=== PATIENT | female | born 1965 | race Caucasian/White ===

== ENCOUNTER 2017-04-25 20:38 | Emergency (ER) | END 2017-04-25 23:10 | disposition home or self-care (01) ==

== ENCOUNTER 2017-12-20 19:39 | Emergency (ER) | END 2017-12-20 22:25 | disposition home or self-care (01) ==

== ENCOUNTER 2018-02-20 11:36 | Day surgery (SDC) | END 2018-02-20 14:46 | disposition home or self-care (01) ==

== ENCOUNTER 2018-05-08 11:12 | Emergency (ER) | payer BC ==
[~2018-05-08] VITALS: Ht 165.1 cm; Wt 79.0 kg
[~2018-05-08 11:12] MED LIST: ALBU18HF INHALATION; ALBU2.5V3 NEB; ALBU8.5H8 INH; IPRA3AMP29 INH
[2018-05-08 11:21] VITALS: Ht 165.1 cm; Wt 79.0 kg
[2018-05-08] MEDS ORDERED: SOD CHLORIDE 0.9% 1,000 ML IV STA (13:16)
[2018-05-08] MEDS ORDERED: CIPR500T4 PO (14:44)
[2018-05-08] MEDS ORDERED: PRED20TA PO (14:44)
[2018-05-08] MEDS ORDERED: HYDR-3029 PO (15:16)
[2018-05-08 15:19] VITALS: BP 121/72; PULSE 79; RESP 18
--- NOTE | 2018-05-08 15:24 | ERD ---
ER Documentation Chief Complaint Chief Complaint LT SIDE FACE NUMBNESS , LT ARM NUMBNESS X 2 DAYS , LT SIDE PELVIC PAIN HPI 52-year-old female presenting with paresthesias on the left side of her face with some left-sided numbness. Patient is also complaining of some CVA tenderness. She has a to GI with some occasional dizziness. No vomiting. No visual changes. Denies chest pain or shortness of breath medic. Medical history is asthma. NKDA. Surgical history denies. Social history smokes 3 cigarettes a day. ROS All systems reviewed and are negative except as per history of present illness. Medications Home Meds Active Scripts Hydroxyzine Hcl* (Hydroxyzine Hcl*) 10 Mg Tablet, 10 MG PO Q6H PRN for ANXIETY, #30 TAB Prov:JL SALCEDO PA-C 05/08/18 Prednisone* (Prednisone*) 20 Mg Tab, 40 MG PO DAILY for 4 Days, TAB Prov:JL SALCEDO PA-C 05/08/18 Ciprofloxacin Hcl* (Ciprofloxacin Hcl*) 500 Mg Tablet, 500 MG PO BID for 7 Days, TAB Prov:JL SALCEDO PA-C 05/08/18 Ipratropium-Albuterol (Ipratropium-Albuterol) 0.5-3 Mg/3 Ml Ampul.neb, 3 ML INH Q4H PRN for SHORTNESS OF BREATH, #30 AMP Prov:CHONG AKHTAR MD 04/25/17 Albuterol Sulfate* (Proair HFA*) 8.5 Gm Hfa.aer.ad, 2 PUFF INH Q4H PRN for WHEEZING AND SOB, #1 INHALER Prov:CHONG AKHTAR MD 04/25/17 Reported Medications Albuterol Sulfate* (Ventolin HFA*) 18 Gm Hfa.aer.ad, 2 PUFF INHALATION Q4H, #1 INHALER 02/20/18 Albuterol Sulfate* (Albuterol Sulfate* Neb) 0.083%-3 Ml Neb, 1.25 MG NEB Q3H PRN for WHEEZING AND SOB, #30 VIAL 02/20/18 Allergies Allergies: Coded Allergies: No Known Allergy (Unverified , 04/25/17) PMhx/Soc History of Surgery: No Anesthesia Reaction: No Hx Neurological Disorder: No Hx Respiratory Disorders: Yes (ASTHMA) Hx Cardiac Disorders: No Hx Psychiatric Problems: No Hx Miscellaneous Medical Probl: No Hx Alcohol Use: No Hx Substance Use: No Hx Tobacco Use: Yes (6 CIGARETTES PER DAY) Smoking Status: Current every day smoker FmHx Family History: No diabetes, No coronary disease, No other Physical Exam Vitals Vital Signs Date Temp Pulse Resp B/P (MAP) Pulse Ox O2 O2 Flow FiO2 Time Delivery Rate 05/08/18 97.8 79 18 121/72 97 Room Air 15:19 (88) 05/08/18 99.3 115 18 152/94 100 11:21 (113) Physical Exam GENERAL: The patient is well-appearing, well-nourished, in no acute distress HEENT: Atraumatic. Conjunctivae are pink. Pupils equal, round, and reactive to light. There is no scleral icterus. Tympanic membranes clear bilaterally. Oropharynx clear. NECK: C-spine is soft and supple. There is no meningismus. There is no cervical lymphadenopathy. CHEST: Clear to auscultation bilaterally. There are no rales, wheezes or rhonchi. HEART: Regular rate and rhythm. No murmurs, clicks, rubs or gallops. No S3 or S4. ABDOMEN:Soft, nontender and nondistended. Good bowel sounds. No rebound or guarding. No gross peritonitis. No gross organomegaly or masses. EXTREMITIES: Equal pulses bilaterally. There is no peripheral clubbing, cyanosis or edema. No focal swelling or erythema. Full range of motion. Grossly neurovascularly intact. NEUROLOGIC: Alert and oriented. Cranial nerves II through XII intact. Motor strength in all 4 extremities with 5 out of 5 strength. Sensation grossly intact. Normal speech and gait. SKIN: There is no apparent rash or petechiae. The skin is warm and dry. Result Diagram: 05/08/18 1339 05/08/18 1339 Results 24 hrs Laboratory Tests Test 05/08/18 13:30 05/08/18 13:35 05/08/18 13:39 Urine Color STRAW Urine Clarity CLEAR Urine pH 6.0 Urine Specific [place] 1.003 Urine Ketones NEGATIVE mg/dL Urine Nitrite NEGATIVE mg/dL Urine Bilirubin NEGATIVE mg/dL Urine Urobilinogen NEGATIVE mg/dL Urine Leukocyte Esterase 3+ Tracy/ul Urine Microscopic RBC 4 /HPF Urine Microscopic WBC 29 /HPF Urine Squamous Epithelial Cells FEW /HPF Urine Bacteria FEW /HPF Urine Hemoglobin 1+ mg/dL Urine Glucose NEGATIVE mg/dL Urine Total Protein NEGATIVE mg/dl POC Beta HCG, Qualitative NEGATIVE White Blood Count 9.0 10^3/ul Red Blood Count 4.30 10^6/ul Hemoglobin 13.6 g/dl Hematocrit 41.4 % Mean Corpuscular Volume 96.3 fl Mean Corpuscular Hemoglobin 31.6 pg Mean Corpuscular 32.9 g/dl Hemoglobin Concent Red Cell Distribution Width 12.4 % Platelet Count 380 10^3/UL Mean Platelet Volume 9.4 fl Immature Granulocytes % 0.200 % Neutrophils % 68.5 % Lymphocytes % 23.1 % Monocytes % 6.2 % Eosinophils % 1.7 % Basophils % 0.3 % Nucleated Red Blood Cells % 0.0 /100WBC Immature Granulocytes # 0.020 10^3/ul Neutrophils # 6.2 10^3/ul Lymphocytes # 2.1 10^3/ul Monocytes # 0.6 10^3/ul Eosinophils # 0.2 10^3/ul Basophils # 0.0 10^3/ul Nucleated Red Blood Cells # 0.0 10^3/ul Prothrombin Time 12.5 Sec Prothrombin Time Ratio 1.0 INR International 0.92 Normalized Ratio Activated Partial Thromboplast 27.6 Sec Time Sodium Level 141 mmol/L Potassium Level 4.1 mmol/L Chloride Level 100 mmol/L Carbon Dioxide Level 31 mmol/L Anion Gap 10 Blood Urea Nitrogen 9 mg/dl Creatinine 0.69 mg/dl Est Glomerular Filtrat > 60 mL/min Rate mL/min Glucose Level 105 mg/dl Calcium Level 9.7 mg/dl Total Bilirubin 0.1 mg/dl Direct Bilirubin 0.00 mg/dl Indirect Bilirubin 0.1 mg/dl Aspartate Amino Transf (AST/SGOT) 24 IU/L Alanine 25 IU/L Aminotransferase (ALT/SGPT) Alkaline Phosphatase 79 IU/L Troponin I < 0.012 ng/ml Total Protein 7.5 g/dl Albumin 4.3 g/dl Globulin 3.20 g/dl Albumin/Globulin Ratio 1.34 Lipase 203 U/L Current Medications Medications Dose Sig/Alyce Start Time Status Last (Trade) Ordered Route PRN Stop Time Admin Dose Reason Admin Sodium 1,000 ml @ Q1H STAT 05/08/18 DC 05/08/18 Chloride 1,000 mls/hr IV 13:16 05/08/18 14:11 14:15 Procedures/MDM DIAGNOSTIC IMAGING REPORT Patient: ALANNAH TIRADO : 1965 Age: 52 Sex: F MR #: [id number] DOS: 05/08/18 1314 Ordering MD: CAIN SALCEDO PA-C Location: [facility] Room/Bed: PROCEDURE: CT brain without contrast CLINICAL INDICATION: Numbness TECHNIQUE: CT of the brain without contrast was performed on a multidetector CT scanner, with multiplanar reformats. One or more of the following dose reduc tion techniques were used: Automated exposure control, adjustment in mA and / or kV according to patient size, use of iterative reconstructive technique. CTDIvol = 56 mGy; DLP = 931 mGy-cm. DICOM images are available. COMPARISON: None available FINDINGS: There are are extensive artifacts from hair extensions which significantly limit evaluation. No gross acute intracranial hemorrhage is seen. No extra-axial fluid collection is seen. No mass effect or midline shift is identified. There is no hydrocephalus. The ventricles and sulci are appear unremarkable. The density of the visualized brain is grossly unremarkable. Visualized estes- white junctions are grossly preserved. Calvarium and skull base are intact. Mastoid air cells and imaged paranasal sinuses grossly clear. IMPRESSION: Significantly limited evaluation due to artifacts from hair extensions, without gross acute intracranial pathology seen. DIAGNOSTIC IMAGING REPORT Patient: ALANNAH TIRADO : 1965 Age: 52 Sex: F MR #: [id number] DOS: 05/08/18 1314 Ordering MD: CAIN SALCEDO PA-C Location: [facility] Room/Bed: PROCEDURE: XR Chest. CLINICAL INDICATION: Abdominal pain TECHNIQUE: Single frontal view of the chest was obtained COMPARISON: None FINDINGS: The heart and mediastinum are within normal limits. The lungs are clear. There is no pleural effusion or pneumothorax. RPTAT: AA IMPRESSION: No acute disease. EKG: Rate/Rhythm: 84 bpm. Normal Sinus Rhythm QRS, ST, T-waves: No changes consistent w/ acute ischemia Impression: No evidence of ischemia or arrhythmia MDM: 52-year-old female presenting with paresthesias. Patient's blood work and imaging is within normal limits. Patient has findings consistent with urinary tract infection. Abdominal exam and pelvic exam are within normal limits. I do not feel that for further blood work or imaging is indicated. Patient is discharged stricter precautions and told to follow-up with primary care within 1-2 days for close evaluation. All questions answered at discharge Departure Diagnosis: Primary Impression: Facial paresthesia Additional Impression: UTI (urinary tract infection) Condition: Stable Patient Instructions: Understanding Urinary Tract Infections (UTIs), Paraelvira ibarraias Referrals: COUNT INCLUDES THE [facility] YOU HAVE RECEIVED A MEDICAL SCREENING EXAM AND THE RESULTS INDICATE THAT YOU DO NOT HAVE A CONDITION THAT REQUIRES URGENT TREATMENT IN THE EMERGENCY DEPARTMENT. FURTHER EVALUATION AND TREATMENT OF YOUR CONDITION CAN WAIT UNTIL YOU ARE SEEN IN YOUR DOCTORS OFFICE WITHIN THE NEXT 1-2 DAYS. IT IS YOUR RESPONSIBILITY TO MAKE AN APPOINTMENT FOR FOLOW-UP CARE. IF YOU HAVE A PRIMARY DOCTOR --you should call your primary doctor and schedule an appointment IF YOU DO NOT HAVE A PRIMARY DOCTOR YOU CAN CALL OUR PHYSICIAN REFERRAL HOTLINE AT IF YOU CAN NOT AFFORD TO SEE A PHYSICIAN YOU CAN CHOSE FROM THE FOLLOWING [facility] [address] [facility]. [facility] [address] [facility] [address] [facility] [facility] [address] [facility]. [facility] [address] [facility]. [facility]. [address] Additional Instructions: FOLLOW UP WITH YOUR PRIMARY CARE PHYSICIAN TOMORROW.Return to this facility if you are not improving as expected. JL SALCEDO PA-C May 08, 2018 15:24
== END 2018-05-08 15:21 | disposition home or self-care (01) ==
LOC: FTE 11:12
DX: N39.0 Urinary tract infection, site not specified (principal); R20.2 Paresthesia of skin; R10.9 Unspecified abdominal pain; J45.909 Unspecified asthma, uncomplicated
CPT/HCPCS: 36415; 70450; 71045; 80053; 81001; 81025; 83690; 84484; 85025; 85610; 85730; 93005; 96360; J7030; Z7502

== ENCOUNTER 2018-05-22 06:15 | Day surgery (SDC) | payer BC ==
[2018-05-21 09:43] VITALS: BMI 28.4
[2018-05-22] VITALS (12 sets, daily range): BP systolic 101–118; BP diastolic 60–73; PULSE 72–78; RESP 12–23; Ht 160 cm; Wt 78.8 kg
[~2018-05-22] VITALS: Ht 160 cm; Wt 78.8 kg
[~2018-05-22 06:15] MED LIST changes: +CIPR500T4 PO; +HYDR-3029 PO; +LACTATED RINGER'S 1,000 ML IV* SCH; +PRED20TA PO
[2018-05-22] MEDS ORDERED: ALBU18HF INHALATION (06:56)
--- NOTE | 2018-05-22 07:16 | HPN ---
Date/Time of Note Date/Time of Note DATE: 05/22/18 TIME: 07:16 Interval H&P Admission Note Pt. seen H&P reviewed: No system changes NEMESIO AMBROSE MD May 22, 2018 07:16
[2018-05-22] MEDS ORDERED: MONT10TA24 PO (07:27)
[2018-05-22] MEDS ORDERED: ALBU2.5V3 NEB (07:28)
--- NOTE | 2018-05-22 07:41 | PREAC ---
Date/Time of Note Date/Time of Note DATE: 05/22/18 TIME: 07:40 Anesthesia Eval and Record Evaluation Time Pre-Procedure Interview DATE: 05/22/18 TIME: 07:20 Age 52 Sex female NPO: 8 hrs Preoperative diagnosis Post Menopausal Bleeding Planned procedure Hysteroscopy and D&C Past Medical History Past Medical History: Includes Pulm: Asthma Surgery & Anesthesia Issues No known issue Meds Anticoagulation: No Beta Luis A within 24 hr: No Reason Beta Luis A not given: Pt. not on B-Luis A Reported Medications Albuterol Sulfate* (Albuterol Sulfate* Neb) 0.083%-3 Ml Neb, 2.5 MG NEB Q4H PRN for WHEEZING AND SOB, #30 VIAL 05/22/18 Montelukast Sodium* (Montelukast Sodium*) 10 Mg Tablet, 10 MG PO QHS, #30 TAB 05/22/18 Albuterol Sulfate* (Ventolin HFA*) 18 Gm Hfa.aer.ad, 2 PUFF INHALATION Q6H PRN for WHEEZING AND SOB, #1 INHALER 05/22/18 Discontinued Reported Medications Albuterol Sulfate* (Ventolin HFA*) 18 Gm Hfa.aer.ad, 2 PUFF INHALATION Q4H, #1 INHALER 02/20/18 Albuterol Sulfate* (Albuterol Sulfate* Neb) 0.083%-3 Ml Neb, 1.25 MG NEB Q3H PRN for WHEEZING AND SOB, #30 VIAL 02/20/18 Discontinued Scripts Hydroxyzine Hcl* (Hydroxyzine Hcl*) 10 Mg Tablet, 10 MG PO Q6H PRN for ANXIETY, #30 TAB Prov:JL SALCEDO PA-C 05/08/18 Prednisone* (Prednisone*) 20 Mg Tab, 40 MG PO DAILY for 4 Days, TAB Prov:JL SALCEDO PA-C 05/08/18 Ciprofloxacin Hcl* (Ciprofloxacin Hcl*) 500 Mg Tablet, 500 MG PO BID for 7 Days, TAB Prov:JL SALCEDO PA-C 05/08/18 Ipratropium-Albuterol (Ipratropium-Albuterol) 0.5-3 Mg/3 Ml Ampul.neb, 3 ML INH Q4H PRN for SHORTNESS OF BREATH, #30 AMP Prov:BETANCOURTMichaelTEECHONG MD 04/25/17 Albuterol Sulfate* (Proair HFA*) 8.5 Gm Hfa.aer.ad, 2 PUFF INH Q4H PRN for WHEEZING AND SOB, #1 INHALER Prov:CHONG AKHTAR MD 04/25/17 Current Medications Lactated Ringer's 1,000 ml @ 125 mls/hr Q8H IV* ; Start 05/22/18 at 06:00; Stop 05/22/18 at 13:59 Meds reviewed: Yes Allergies Coded Allergies: No Known Allergy (Unverified , 05/22/18) Allergies Reviewed: Yes Labs/Studies Labs Reviewed: Reviewed by anesthesiologist test: Negative Studies: ECG (n/a), CXR (n/a) Pre-procedure Exam Last vitals Vital Signs Date Temp Pulse Resp B/P (MAP) Pulse Ox O2 O2 Flow FiO2 Time Delivery Rate 05/22/18 97.4 78 18 103/73 97 Room Air 06:30 (83) Airway: Adequate mouth opening, Adequate thyromental dist Mallampati: Mallampati II Teeth: Normal Lung: Normal Heart: Normal ASA Physical Status ASA physical status: 2 Emergency: None Planned Anesthetic General/MAC: LMA Planned Pain Management Parenteral pain med Pre-operative Attestations Prior to commencing anesthesia and surgery, the patient was re-evaluated, there was verification of: *The patient's identity *The results of appropriate recent lab work and preoperative vital signs *The above evaluation not changing prior to induction *Anesthetic plan, risk benefits, alternative and complications discussed with patient/family; questions answered; patient/family understands, accepts and wishes to proceed. BEVERLEY MARIA MD May 22, 2018 07:41
[2018-05-22] MEDS ORDERED: PROPOFOL 20 ML ONE (07:47)
[2018-05-22] MEDS ORDERED: CEFAZOLIN 1 GM INJ ONE (07:47)
[2018-05-22] MEDS ORDERED: FENTAnyl 50 MCG/ML VIAL ONE (07:48)
[2018-05-22] MEDS ORDERED: MIDAZOLAM 1 MG/ML 2 ML INJ ONE (07:48)
[2018-05-22] MEDS ORDERED: KETOROLAC 30 MG INJ ONE (08:26)
[2018-05-22] MEDS ORDERED: METOCLOPRAMIDE 10 MG INJ ONE (08:26)
[2018-05-22] MEDS ORDERED: ONDANSETRON 4 MG INJ ONE (08:26)
[2018-05-22] MEDS ORDERED: DEXAMETHASONE 4 MG/ML 5 ML INJ ONE (08:26)
[2018-05-22] MEDS ORDERED: OXYCODONE/ACETAMINOPHEN (5/325) TAB PO PRN (08:30)
[2018-05-22] MEDS ORDERED: EPHEDrine SULFATE 50 MG/5 ML SYG IV PRN (08:30)
[2018-05-22] MEDS ORDERED: FENTAnyl 50 MCG/ML VIAL IV PRN ×3 (08:30)
[2018-05-22] MEDS ORDERED: MEPERIDINE 25 MG INJ IV PRN (08:30)
[2018-05-22] MEDS ORDERED: METOCLOPRAMIDE 10 MG INJ IV PRN (08:30)
[2018-05-22] MEDS ORDERED: HYDROmorphONE 1 MG/5 ML IV SYRINGE IV PRN ×3 (08:30)
[2018-05-22] MEDS ORDERED: DIPHENHYDRAMINE 50 MG INJ IV PRN (08:30)
[2018-05-22] MEDS ORDERED: ONDANSETRON 4 MG INJ IV PRN (08:30)
[2018-05-22] MEDS ORDERED: LABETALOL HCL 20MG INJ IV PRN (08:30)
--- NOTE | 2018-05-22 08:53 | PAC ---
Date/Time of Note Date/Time of Note DATE: 05/22/18 TIME: 08:53 Post-Anesthesia Notes Post-Anesthesia Note Last documented vital signs Vital Signs Date Temp Pulse Resp B/P (MAP) Pulse Ox O2 O2 Flow FiO2 Time Delivery Rate 05/22/18 98.3 78 18 103/73 97 Room Air 09:00 (83) Activity: WNL Respiratory function: WNL Cardiovascular function: WNL Mental status: Baseline Pain reasonably controlled: Yes Hydration appropriate: Yes Nausea/Vomiting absent: Yes BEVERLEY MARIA MD May 22, 2018 08:53
--- NOTE | 2018-05-22 09:21 | HPN ---
Date/Time of Note Date/Time of Note DATE: 05/22/18 TIME: 09:21 Interval H&P Admission Note Pt. seen H&P reviewed: No system changes NEMESIO AMBROSE MD May 22, 2018 09:21
--- NOTE | 2018-05-22 09:25 | SIPON ---
Date/Time of Note Date/Time of Note DATE: 05/22/18 TIME: 09:22 Operative Report Preoperative Diagnosis postmenopausal bleeding Postoperative Diagnosis see pathologic report Operation/Procedure Performed HYsteroscopic endometrial shaving endocervical curettage and endometrial curettage Surgeon see signature line hospital nursing assistant BARBRA from [employer] Anesthesia: general Estimated blood loss: 0 - 10 ml's Transfusion Required none Specimen endometrial curretings endocervical currettings Grafts/Implants none Complications none NEMESIO AMBROSE MD May 22, 2018 09:25
--- NOTE | 2018-05-22 09:27 | PD.PPDC ---
[employer] SERVICE SUPERVISOR Discharge Instruction Diagnosis [id number] Final Diagnosis: Mhzah3s postmenopausal bleeding Condition [id number] Patient Condition: Axrcw5q Stable Diet Gayht5Tl Diet: Wqqtp7t Resume Regular Diet Activity/Restrictions [id number] Activity: Lwzxd3h May Shower Gpoux9Pw Restrictions: Wbitn6e No Sexual Activity Nothing in the Vagina No E. Lopez No Tampons, douche Follow-up Follow-up with Physician: 2, Week/Weeks Return to clinic for Rwjuc3St DRAG DOWN Instructions: Pqptz6o Fever greater than 101 Chills Worsening abdominal pain Excessive Vaginal Bleeding More than 2 pads per hour Unable to tolerate diet NEMESIO AMBROSE MD May 22, 2018 09:27
--- NOTE | 2018-05-22 10:18 | OPR ---
DATE OF OPERATION: 05/22/2018 PREOPERATIVE DIAGNOSIS: Postmenopausal bleeding. POSTOPERATIVE DIAGNOSIS: Postmenopausal bleeding. See pathological report. OPERATION PERFORMED: Hysteroscopic endometrial shavings and endocervical curettage and the endometri al curettage additional. ANESTHESIA: General. ANESTHESIOLOGIST: Dr. Vallejo. SURGEON: Pj Ambrose M.D. ESTIMATED BLOOD LOSS: Approximately 5 mL. PROCEDURE: Under the proper induction of general anesthesia, the patient was placed in dorsal lithot chika position. Perineal area and vagina wall was prepped and draped in usual aseptic manner. Externa l genitalia revealed no gross abnormality. Bimanual examination, uterus is slightly retroverted and normal size and consistency. There is no palpable adnexal pathology. Weighted speculum was introduc ed into the vagina. Cervix identified, which was clear. Anterior lip of the cervix was grasped with a single tooth tenaculum. Endocervical curettage was performed with scanty tissue was obtained and the cavity was sounded, which was 7 cm in depth. After adjusting the operating table, according to t he uterine axis and the hysteroscope was prepared in usual fashion. The hysteroscope was introduced into the uterine cavity without any difficulty and advanced from the endocervical os to the uterine c avity. Both ostium was visualized, which was some blurry vision, which was corrected after the adequ ate suction was done. Then endometrial shaver was introduced and prior to the endometrial shaver ins erted, the picture was taken and there was not any gross lesion noted. Endometrium was relatively th in except a small clot that was most likely float around secondary to the endocervical curettage. Af ter the shaver inserted and the entire cavity was shaved, but due to inadequate visualization, after the hysteroscope was removed the addition uterine curettage was done and sent the additional specimen . All the instruments were removed. Sponge count taken. The patient was sent to recovery room in s table condition. Dictated By: PJ STARKS/JOSEFINA Conf#: [id number] DID#: [id number] CC: PJ AMBROSE MD;*EndCC*
== END 2018-05-22 10:38 | disposition home or self-care (01) ==
LOC: SDS 06:15
PROVIDERS: ATTEND Obstetrics & Gynecology
DX: N95.0 Postmenopausal bleeding (principal)
CPT/HCPCS: 58558; 88305; J0690; J1100; J1885; J2250; J2405; J2765; J3010; Z7512; Z7610

== ENCOUNTER 2018-09-07 23:11 | Emergency (ER) | payer BC ==
[~2018-09-07] VITALS: Ht 165.1 cm; Wt 75.0 kg
[~2018-09-07 23:11] MED LIST changes: -ALBU8.5H8 INH; -CIPR500T4 PO; -HYDR-3029 PO; -IPRA3AMP29 INH; -LACTATED RINGER'S 1,000 ML IV* SCH; +MONT10TA24 PO; -PRED20TA PO
[2018-09-07 23:17] VITALS: Ht 165.1 cm; Wt 75.0 kg
[2018-09-08] MEDS ORDERED: ALBUTEROL 0.083% (NEB) 2.5 MG/3 ML AMP NEB STA (01:06)
[2018-09-08] MEDS ORDERED: DEXAMETHASONE 10 MG/ML 1 ML INJ IM STA (01:06)
[2018-09-08] MEDS ORDERED: IPRATROPIUM (NEB) 0.5 MG/2.5 ML AMP NEB STA (01:06)
[2018-09-08] MEDS ORDERED: D-ME473S2 PO (02:40)
[2018-09-08] MEDS ORDERED: ALBU18HF INHALATION (02:41)
[2018-09-08] MEDS ORDERED: ALBU2.5V3 NEB (02:43)
[2018-09-08 02:51] VITALS: BP 119/76; PULSE 89; RESP 20
--- NOTE | 2018-09-08 04:24 | ERD ---
ER Documentation Chief Complaint Chief Complaint SOB X TODAY. HPI 53-year-old female with history of asthma presents to the ED complaining of shortness of breath and chest tightness x1 day. Patient states she has been recently sick with upper respiratory symptoms for the past 2 weeks. She states she has had a productive cough. She states she had leftover antibiotics at home when she took it feels much better. She states she feels short of breath despite her inhaler nebulizer treatment yesterday. She denies any chest pain. Denies any fevers or chills. She does admit to smoking cigarettes daily. ROS All systems reviewed and are negative except as per history of present illness. Medications Home Meds Active Scripts Albuterol Sulfate* (Albuterol Sulfate* Neb) 0.083%-3 Ml Neb, 2.5 MG NEB Q4 PRN for SHORTNESS OF BREATH, #30 EA Prov:PETEY GARIBAY PA-C 09/08/18 Albuterol Sulfate* (Ventolin HFA*) 18 Gm Hfa.aer.ad, 2 PUFF INHALATION Q6H PRN for WHEEZING AND SOB, #1 INHALER Prov:PETEY GARIBAY PA-C 09/08/18 Dextromethorphan Hb-Promethazine Hcl* (Promethazine DM* Syrup) 473 Ml Syrup, 5 M L PO Q6 PRN for COUGH, #7 ML Prov:PETEY GARIBAY PA-C 09/08/18 Reported Medications Albuterol Sulfate* (Albuterol Sulfate* Neb) 0.083%-3 Ml Neb, 2.5 MG NEB Q4H PRN for WHEEZING AND SOB, #30 VIAL 05/22/18 Montelukast Sodium* (Montelukast Sodium*) 10 Mg Tablet, 10 MG PO QHS, #30 TAB 05/22/18 Allergies Allergies: Coded Allergies: No Known Allergy (Unverified , 05/22/18) PMhx/Soc History of Surgery: Yes (BREAST IMPLANT,) Anesthesia Reaction: No Hx Neurological Disorder: No Hx Respiratory Disorders: No Hx Cardiac Disorders: No Hx Psychiatric Problems: No Hx Miscellaneous Medical Probl: No Hx Alcohol Use: No Hx Substance Use: No Hx Tobacco Use: Yes (4 A DAY) Smoking Status: Current every day smoker Physical Exam Vitals Vital Signs Date Temp Pulse Resp B/P (MAP) Pulse Ox O2 O2 Flow FiO2 Time Delivery Rate 09/08/18 98.0 89 20 119/76 97 Room Air 02:51 (90) 09/08/18 78 26 96 21 01:41 09/07/18 98.1 86 20 142/69 97 23:17 (93) Physical Exam Const: No acute respiratory distress Head: Atraumatic Eyes: Normal Conjunctiva ENT: Normal External Ears, Nose and Mouth. Neck: Full range of motion. No meningismus. Resp: + Diffuse rhonchi, no wheezing, no rhonchi. Poor inspiratory effort, speaking complete sentences. Cardio: Regular rate and rhythm, no murmurs Skin: No petechiae or rashes Back: No midline or flank tenderness Ext: No cyanosis, or edema Neur: Awake and alert Psych: Normal Mood and Affect Results 24 hrs Current Medications Medications Dose Sig/Alyce Start Time Status Last (Trade) Ordered Route PRN Stop Time Admin Dose Reason Admin Albuterol 2.5 mg ONCE STAT 09/08/18 DC 09/08/18 (Proventil NEB 01:06 09/08/18 01:40 0.083% (Neb)) 01:08 Ipratropium 0.5 mg ONCE STAT 09/08/18 DC 09/08/18 [place] NEB 01:06 09/08/18 01:40 (Atrovent 01:08 0.02% (Neb)) 10 mg ONCE STAT 09/08/18 DC 09/08/18 Dexamethasone IM 01:06 09/08/18 01:32 (Decadron) 01:09 Procedures/MDM ED PROCEDURES: 12-lead EKG interpretation as interpeted by Dr. Huerta Normal Sinus Rhythm with ventricular rate of 77 beats per minute Normal axis Normal intervals No acute ST or T wave changes suggestive of acute ischemia or STEMI. ED COURSE: The patient was given 1 albuterol and Atrovent treatment, IM Decadron The medication was well tolerated and the patient had market improvement in symptoms. The patient remained stable throughout ED course. MEDICAL DECISION MAKIN-year-old female with history of asthma presents with shortness of breath and chest tightness. She has no hypoxia or respiratory distress on physical exam. Her EKG is unremarkable. Patient felt much better status post steroid injection and 1 DuoNeb treatment here. I have low suspicion for pneumonia or any other bacterial infection. Patient recently finished a course of antibiotics which she had leftover from previous. I do not think she needs any further antibiotics at this time. Patient was given a refill of her albuterol inhaler and solution. Also encouraged smoking cessation as this is likely exacerbating her symptoms. Recommended PCP follow-up 1 week, strict return precautions were discussed. PRESCRIPTIONS: Albuterol inhaler, albuterol solution, Promethazine DM SPECIALIST FOLLOW UP RECOMMENDED: None Patient has been advised to follow up with primary care in 1-2 days. Smoking Cessation Therapy: Pt. was lectured for greater than 3 minutes on the health risks of continued smoking and the benefits of cessation. Departure Diagnosis: Primary Impression: Asthma exacerbation Asthma severity: unspecified severity Asthma persistence: unspecified Qualified Codes: J45.901 - Unspecified asthma with (acute) exacerbation Condition: Stable Patient Instructions: Asthma Medications Additional Instructions: You must stop smoking as this is worsening your cough and your symptoms. Take the cough medication as needed. Do not need any other medications. Follow-up with your primary care provider, otherwise return here for any new or worsening symptoms. PETEY GARIBAY PA-C Sep 08, 2018 04:24
--- NOTE | 2018-09-08 11:03 | RADRPT ---
Vent Rate: 77 bpm RR Interval: 780 msec DE Interval: 155 msec QRS Duration: 81 msec QT Interval: 403 msec QTC Interval: 456 msec P-R-T [place]: 56 - 65 - 90 degrees Sinus rhythm...normal P axis, V-rate 50- 99 Nonspecific T abnormalities, lateral leads...T <-0.10mV, I aVL V5 V6 Electronically Signed By: Amina Fonseca
== END 2018-09-08 02:53 | disposition home or self-care (01) ==
LOC: FTE 23:11
DX: J45.901 Unspecified asthma with (acute) exacerbation (principal); F17.210 Nicotine dependence, cigarettes, uncomplicated
CPT/HCPCS: 93005; 94664; 96372; J1100; Z7502; Z7610